=== PATIENT | male | born 1950 | race Caucasian/White ===

== ENCOUNTER 2016-11-01 13:02 | Emergency (ER) | payer MEDICARE, BC ==
--- NOTE | 2016-11-01 13:33 | EDM.PDOC ---
ED HPI GENERAL MEDICAL PROBLEM - General Chief Complaint: Neurological Problem Stated Complaint: dizziness Time Seen by Provider: 11/01/16 13:11 Source of Information: Reports: Patient, EMS History Limitations: Reports: No Limitations - History of Present Illness INITIAL COMMENTS - FREE TEXT/NARRATIVE: Patient brought to ER via ambulance with complaint of being lightheaded at his home starting at 1030 and lasted until the ambulance came. He said it started late morning when he stood up from sitting watching TV. He didn't fall or faint and denies vertigo, vision change, weakness or pain in chest, arms, neck or jaw. The lightheadedness waxed and waned somewhat but persisted during both standing and sitting. He didn't try lying down until EMS arrived and laid him on the stretcher; then the lightheadedness resolved he says. EMS says glucose is 140 (he has borderline DM), they did two EKGs the first showed A Fib but the second was sinus rhythm. Patient denies any known A Fib, history of [place] or stroke/TIA. He takes Amlodipine for hypertension. - Related Data Allergies Allergy/AdvReac Type Severity Reaction Status Date / Time No Known Drug Allergies Allergy Cannot Verified 11/01/16 13:16 Remember Home Meds: Home Meds Aspirin [Ecotrin] 325 mg PO DAILY 11/01/16 [History] Cholecalciferol (Vitamin D3) [Vitamin D] 5,000 unit PO DAILY 11/01/16 [History] Flaxseed/Omega3,6,9/Fatty Acid [Flax Seed Oil 1,300 mg Softgel] 1 each PO DAILY 11/01/16 [History] Ubidecarenone [Co Q-10] 100 mg PO DAILY 11/01/16 [History] amLODIPine [Norvasc] 10 mg PO QAM 11/01/16 [History] ED ROS GENERAL - Review of Systems Review Of Systems: See Below Constitutional: Denies: Fever, Chills, Weakness, Diaphoresis HEENT: Denies: Ear Pain, Vertigo, Vision Change Respiratory: Denies: Shortness of Breath, Wheezing, Cough Cardiovascular: Reports: Blood Pressure Problem, Edema (chronic), Lightheadedness. Denies: Chest Pain, Syncope GI/Abdominal: Denies: Abdominal Pain, Diarrhea, Nausea, Vomiting Musculoskeletal: Denies: Neck Pain, Shoulder Pain, Arm Pain Skin: Denies: Cyanosis, Jaundice, Mottled, Pallor, Diaphoresis Neurological: Reports: Dizziness. Denies: Confusion, Headache, Numbness, Seizure, Syncope, Trouble Speaking, Difficulty Walking, Weakness Psychiatric: Denies: Agitation, Confusion ED EXAM, NEURO - Physical Exam Exam: See Below Exam Limited By: No Limitations General Appearance: Alert, WD/WN, No Apparent Distress Eye Exam: Bilateral Eye: EOMI, Normal Inspection (with full visual fischer), PERRL Ears: Normal External Exam, Hearing Grossly Normal Nose: Normal Inspection, No Blood Throat/Mouth: Normal Lips, Normal Voice, No Airway Compromise Head Exam: Atraumatic, Normocephalic Neck: Full Range of Motion Respiratory/Chest: No Respiratory Distress, Lungs Clear, Normal Breath Sounds Cardiovascular: Regular Rate, Rhythm, No Murmur, Other (moderate dependent edema ) GI/Abdominal: Normal Bowel Sounds, Soft, Non-Tender, No Organomegaly, No Distention Neurological: Alert, Normal Mood/Affect, Normal Dorsiflexion, CN II-XII Intact, Normal Plantar Flexion, No Motor/Sensory Deficits, Oriented x 3, Straight Leg Raise (L) (5/5 and symmetric), Straight Leg Raise (R), Other (Negative Homans) Back Exam: No: CVA Tenderness (L), CVA Tenderness (R) Extremities: Normal Range of Motion, Non-Tender Psychiatric: Normal Affect, Normal Mood Skin Exam: Warm, Dry, Intact, Normal Color, No Rash Course - Vital Signs Last Recorded V/S: Last Vital Signs Temp 98.9 F 11/01/16 13:13 Pulse 97 11/01/16 14:07 Resp 20 11/01/16 13:13 BP 165/92 H 11/01/16 14:07 Pulse Ox 98 11/01/16 13:13 - Orders/Labs/Meds Orders: Active Orders 24 hr Category Date Time Status EKG Documentation Completion [RC] ASDIRECTED Care 11/01/16 13:27 Ordered BASIC METABOLIC PANEL,BMP [CHEM] Stat Lab 11/01/16 13:26 Ordered TROPONIN I [CHEM] Stat Lab 11/01/16 13:26 Ordered UA W/MICROSCOPIC [URIN] Stat Lab 11/01/16 13:26 Uncollected Sodium Chloride 0.9% @ 999 MLS/HR (1000ml) Med 11/01/16 13:40 Ordered Sodium Chloride 0.9% [Normal Saline] 1,000 ml IV .BOLUS EKG 12 Lead [EK] Routine Ther 11/01/16 13:26 Ordered Medication Orders Sodium Chloride (Normal Saline) 1,000 mls @ 999 mls/hr IV .BOLUS ONE Stop: 11/01/16 14:40 Labs: Laboratory Tests 11/01/16 11/01/16 Range/Units 13:45 13:50 WBC 7.2 (5.0-10.0) 10^3/uL RBC 5.13 (4.50-6.00) 10^6/uL Hgb 15.3 (13.0-17.0) g/dL Hct 45.2 (40.0-52.0) % MCV 88.1 (82.0-92.0) fL MCH 29.8 (27.0-31.0) pg MCHC 33.9 (32.0-36.0) g/dL RDW 13.7 (11.5-14.5) % Plt Count 427 H (150-300) 10^3/uL MPV 7.5 (7.4-10.4) fL Neut % (Auto) 77.3 H (50.0-70.0) % Lymph % (Auto) 11.5 L (20.0-40.0) % [place] % (Auto) 10.7 H (2.0-8.0) % Eos % (Auto) 0.0 L (1.0-3.0) % Baso % (Auto) 0.5 (0.0-1.0) % Neut # (Auto) 5.6 (2.5-7.0) 10^3/uL Lymph # (Auto) 0.8 L (1.0-4.0) 10^3/uL Hickman # (Auto) 0.8 (0.1-0.8) 10^3/uL Eos # (Auto) 0.0 L (0.1-0.3) 10^3/uL Baso # (Auto) 0.0 (0.0-0.1) 10^3/uL Urine Color Yellow (YELLOW) Urine Appearance Clear (CLEAR) Urine pH 8.5 (5.0-9.0) Ur Specific [place] 1.020 (1.005-1.030) Urine Protein 30 H (NEGATIVE) mg/dL Urine Glucose (UA) Negative (NEGATIVE) mg/dL Urine Ketones >=160 H (NEGATIVE) mg/dL Urine Occult Blood Trace-intact H (NEGATIVE) Urine Nitrite Negative (NEGATIVE) Urine Bilirubin Negative (NEGATIVE) Urine Urobilinogen 0.2 (0.2-1.0) E.U./dL Ur Leukocyte Esterase Negative (NEGATIVE) Meds: Medications Generic Name Dose Route Start Last Admin Trade Name Freq PRN Reason Stop Dose Admin Sodium Chloride 1,000 mls @ 999 mls/hr 11/01/16 13:40 Normal Saline IV 11/01/16 14:40 .BOLUS ONE Discontinued Medications Generic Name Dose Route Start Last Admin Trade Name Freq PRN Reason Stop Dose Admin Metoprolol Tartrate 25 mg 11/01/16 13:40 11/01/16 14:07 Lopressor PO 11/01/16 13:41 25 mg ONETIME ONE Administration - Re-Assessments/Exams Free Text/Narrative Re-Assessment/Exam: 11/01/16 15:45 Following a liter of fluids he feels quite a bit better than he felt at home. Metoprolol 25 mg was also given po which mildly improved BP. Discussed findings with patient including EKG and troponin. Neither show any evidence of acute [place] but I did discuss with him that the troponin should be rechecked in a couple hours to be more conclusive, although this draw was 3 hours and 15 minutes after his symptom onset and should be quite accurate. Pt doesn't want to wait for a second check. I encouraged him to follow up with his PCP in 1-2 days and may need to have his blood pressure medication changed or increased. Patient understands this and he is discharged in stable condition. Departure - Departure Time of Disposition: 15:41 Disposition: Home, Self-Care 01 Condition: good Clinical Impression: Dehydration, Orthostatic lightheadedness Hypertension Qualifiers: Hypertension type: unspecified secondary hypertension Qualified Code(s): I15.9 - Secondary hypertension, unspecified; I15 - Secondary hypertension - Discharge Information Forms: ED Department Discharge Additional Instructions: 1. Continue to take your blood pressure medication as directed until you follow up with your PCP in 1-2 days. 2. Drink 8 cups of water daily. 3. Call your PCP tomorrow to make appointment for recheck in 1-2 days. - My Orders Last 24 Hours: My Active Orders 11/01/16 13:26 BASIC METABOLIC PANEL,BMP [CHEM] Stat TROPONIN I [CHEM] Stat UA W/MICROSCOPIC [URIN] Stat EKG 12 Lead [EK] Routine 11/01/16 13:27 EKG Documentation Completion [RC] ASDIRECTED 11/01/16 13:40 Sodium Chloride 0.9% @ 999 MLS/HR (1000ml) Sodium Chloride 0.9% [Normal Saline] 1,000 ml IV .BOLUS - Assessment/Plan Last 24 Hours: My Active Orders 11/01/16 13:26 BASIC METABOLIC PANEL,BMP [CHEM] Stat TROPONIN I [CHEM] Stat UA W/MICROSCOPIC [URIN] Stat EKG 12 Lead [EK] Routine 11/01/16 13:27 EKG Documentation Completion [RC] ASDIRECTED 11/01/16 13:40 Sodium Chloride 0.9% @ 999 MLS/HR (1000ml) Sodium Chloride 0.9% [Normal Saline] 1,000 ml IV .BOLUS
[2016-11-01] MEDS ORDERED: Metoprolol Tartrate 25 MG Tab PO ONE (13:40)
[2016-11-01] MEDS ORDERED: Sodium Chloride 0.9% 1,000 ML IV ONE (13:40)
[2016-11-01 14:25] LABS: CHLORIDE,CL 102 mmol/L (98-115); SODIUM,NA 140 mmol/L (136-145)
[2016-11-01 15:17] VITALS: BP 170/98
== END 2016-11-01 16:00 | disposition home or self-care (01) ==
LOC: KA.ED 13:02
DX: E86.0 Dehydration (principal); I15.9 Secondary hypertension, unspecified; Z79.82 Long term (current) use of aspirin; Z79.899 Other long term (current) drug therapy
CPT/HCPCS: 36415; 80048; 81001; 84484; 85025; 93005; 96360; 99284; A9270; J7030; 99283